=== PATIENT | female | born 1975 | race Caucasian/White ===

== ENCOUNTER → 2017-09-17 15:49 | Outpatient (CLI) | payer BC, SELFPAY ==
[2017-09-22 15:25] LABS: HPV Reflexed? NOT INDICATED
== END ==
PROVIDERS: Family Provider Student in an Organized Health Care Education/Training Program; PCP Student in an Organized Health Care Education/Training Program; Visit Provider Obstetrics & Gynecology
DX: Z12.4 Encounter for screening for malignant neoplasm of cervix (principal)
CPT/HCPCS: 88175; G0145

== ENCOUNTER 2020-09-18 15:43 | Emergency (ER) | payer BC, SELFPAY ==
[2020-09-18 15:45] VITALS: BP 117/85; PULSE 76; RESP 14; TEMP 35.9; O2SAT 98; BMI 33.8
--- NOTE | 2020-09-18 16:02 | EKG12_ITS ---
Test Reason : CP Blood Pressure : / mmHG Vent. Rate : 069 BPM Atrial Rate : 069 BPM P-R Int : 134 ms QRS Dur : 080 ms QT Int : 386 ms P-R-T Axes : 054 003 039 degrees QTc Int : 413 ms Sinus rhythm with occasional Premature ventricular complexes Otherwise normal ECG Confirmed by RASHARD ECHEVARRIA, ADAMARIS ([id number]), editorial intern ENLY PATIÑO ([id number]) on 09/20/2020 10:40:36 AM Referred By: WHIT Confirmed By:ADAMARIS WETZEL MD
[2020-09-18 17:23] VITALS: BP 135/87; PULSE 67; RESP 15; O2SAT 99
--- NOTE | 2020-09-18 17:26 | RAD_ITS ---
STUDY: X-RAY CHEST REASON FOR EXAM: Female, 45 years old. Chest pain TECHNIQUE: Single AP portable view of the chest. COMPARISON: None. FINDINGS: EKG leads overlie the chest The lungs are clear and expanded. There is no demonstrated pleural abnormality. Normal size heart. Normal mediastinum and juan. Normal visualized pulmonary arteries. Normal visualized aortic arch and descending thoracic aorta. Normal visualized thoracic spine. Normal visualized ribs, clavicles, and shoulders. There is no demonstrated abnormality of the visualized soft tissue structures of the upper abdomen. RAD/Chest 1 View (Portable) IMPRESSION: Normal x-ray examination of the chest. Electronically Signed: Matty Gibbs MD at 17:43 EDT , Service support ,
--- NOTE | 2020-09-18 17:41 | EDS_ITS ---
HPI History of Present Illness Chief Complaint: Chest Pain Informant: patient Onset/Context/Timing Onset: Days Context: Gradual Onset Timing: Intermittent Current Severity: Mild Maximum Severity: Mild Narrative Narrative: 45-year-old female had an abscess on her left upper shoulder had I&D primary care physician put her on Bactrim and Keflex. She is finished with the Keflex and now only on the Bactrim. Said she had a similar reaction 1 time to a Z-Himanshu. Says she has whole body pain. At times has lightning strikes in her chest. Has a burning sensation and just feels funny. She denies nausea vomiting or diarrhea. She denies fever or chills. Prior to antibiotic she had no exertional chest pain or exertional shortness of breath. She is never had a DVT or PE. She has no leg pain or swelling. There is no pleuritic discomfort and she is had no hemoptysis. She has no significant past medical history othe rwise. Prior similar symptoms: Yes Recent Illness/Hospitalization: No PFSH PFSH Home Medications cephalexin 500 mg PO TID 09/18/20 [History Last Taken Unknown] norgestimate-ethinyl estradiol [Sprintec (28)] 1 tab PO DAILY 09/18/20 [History Last Taken Unknown] sulfamethoxazole-trimethoprim [Bactrim DS] 1 tab PO BID 09/18/20 [History Last Taken Unknown] Allergy/AdvReac Type Severity Reaction Status Date / Time clarithromycin [From Biaxin] Allergy Rash Verified 09/18/20 15:44 Social History Smoking Status: Never smoker ROS ROS ED ROS Narrative Denies recent illness. Review of Systems ROS Unobtainable: Denies due to encephalopathy Constitutional Constitutional ED: Denies fever(s) or subjective Eyes Eyes: Denies blurry vision or change in vision ENT ENT ED: Denies ear pain or sore throat Cardiovascular Cardiovascular: Reports chest pain; Denies orthopnea, palpitations, paroxysmal nocturnal dyspnea or racing heartbeat Respiratory/Chest Respiratory/Chest: Denies cough, dyspnea, dyspnea on exertion, orthopnea or paroxysmal nocturnal dyspnea Gastrointestinal Gastrointestinal: Denies abdominal pain, diarrhea, nausea or vomiting Genitourinary Genitourinary ED: Denies dysuria or hematuria Musculoskeletal Musculoskeletal: Denies myalgias Integumentary Denies rash Neurologic Neurologic: Denies headache(s) Psychiatric Psychiatric: Denies depression Endocrine Endocrinology: Denies polyuria EXAM Physical Exam Narrative Exam Narrative: Well-appearing middle-aged female no acute distress vital signs stable afebrile pulse ox 98% on room air no signs hypoxia. HEENT exam normal. Neck unremarkable. Lungs are clear. Heart regular rhythm no murmur. Chest wall nontender. Abdomen soft nontender. Patient moving all 4 extremities. Neurovascular intact. Calves are nontender without edema or cords. Her left upper shoulder to prior I&D is well-healed. Back nontender. Neurologic exam normal. Const Vital Signs: 09/18/20 15:45 09/18/20 17:23 Temperature 96.6 F L Temperature Source Temporal Pulse Rate 76 67 Respiratory Rate 14 15 Blood Pressure 117/85 H 135/87 H Blood Pressure Mean 95 103 Pulse Ox 98 99 Oxygen Delivery Method Room Air Room Air Positive well nourished and well developed General Appearance ED: well developed and NAD HEENT Reports moist mucous membranes Negative for trauma or tenderness Eyes PERRL and EOMs intact bilaterally Neck no lymphadenopathy, supple and no JVD General: Negative for tenderness Chest Wall inspection of chest normal and palpation of chest normal Resp normal respiratory effort and clear to auscultation bilaterally Cardio regular rate, regular rhythm, S1 normal heart sound, S2 normal heart sound and no murmurs GI normal to inspection, nondistended, normoactive bowel sounds, non-tender, non- distended and no masses Inspection: Negative for abdominal distention Auscultation: normoactive bowel sounds Palpation: soft; Negative for tender, guarding or rebound tenderness present Back/Spine no CVA tenderness General Back: Negative for CVA tenderness Extremity normal to inspection General Extremety ED: Negative for edema or tenderness General Extremity: Negative for edema Neuro oriented x3 and CN's II-XII intact bilaterally Sensorium / Orientation: alert; Negative for lethargic or stuporous Motor Exam: strength 5/5 throughout Psych mental status grossly normal Skin no rashes or lesions noted and no wounds MDM MDM MDM Narrative Medical decision making narrative: Patient with a burning sensation of her whole body. She describes lightning strikes her chest at times this is not cardiac in etiology is not a DVT or PE. Screening labs will be obtained I suspect those will be all well and she will be discharged to home. Repeat exam patient doing well at 9:55 PM will be discharged to home. I went over all test results with her. Lab Data Attestation: I reviewed the patient's lab results. Lab results narrative: CBC White count 3 hemoglobin 14. Electrolytes sodium 132. Normal gap 7 normal creatinine. Normal troponin. Chest x-ray unremarkable. EKG normal with PVCs. Labs: Laboratory Results - last 24 hr 09/18/20 09/18/20 17:45 17:45 WBC 3.8 L RBC 5.01 Hgb 14.3 Hct 45.0 MCV 89.8 MCH 28.5 MCHC 31.8 L RDW Std Deviation 40.4 RDW Coeff of Faye 12.3 Plt Count 225 MPV 9.7 Immature Gran % (Auto) 0.300 Neut % (Auto) 49.9 Lymph % (Auto) 21.8 [place] % (Auto) 14.7 H Eos % (Auto) 11.5 H Baso % (Auto) 1.8 H Absolute Neuts (auto) 1.9 L Absolute Lymphs (auto) 0.83 Nucleated RBC % 0 Sodium 132 L Potassium 4.9 Chloride 102 Carbon Dioxide 23.0 Anion Gap 7 BUN 11 Creatinine 0.70 Estim Creat Clear Calc 99.73 Est GFR (MDRD) Af Amer 118 Est GFR (MDRD) Non-Af 97 BUN/Creatinine Ratio 15.7 Glucose 92 Calcium 8.8 Troponin I High Sens 4.6 Radiography Chest X-Ray - ED: 1 View, Read by ED Physician, Heart, Lungs, Mediastinum, Bony Structures and No Acute Disease Rhythm Strip Rhythm Strip: Sinus Rhythm Rate: 69 Ectopy: None and PVC(s) EKG Initial EKG: Attestation: I personally reviewed and interpreted this EKG as follows: Interpretation: Sinus Rhythm and No Acute Injury Pattern Comments: Normal sinus rhythm rate of 69 no acute signs of [place] or ischemia. Few PVCs. Discharge Plan Triage Chief Complaint: Chest Pain ED Provider: Flip John Dx/Rx/DC Orders Clinical Impression: Medication adverse effect Instructions: ED Drug Reaction, Other Prescriptions: No Action sulfamethoxazole-trimethoprim [Bactrim DS] 800-160 mg Tablet 1 tab PO BID RF: 0 cephalexin 500 mg capsule 500 mg PO TID RF: 0 norgestimate-ethinyl estradiol [Sprintec (28)] 0.25-35 mg-mcg Tablet 1 tab PO DAILY RF: 0 Primary Care Provider: Balwinder Yanes Referrals: Balwinder Yanes DO [Primary Care Provider] - Activity Restrictions/Additional Instructions: I think this is all due to the antibiotics which you can stop now. This should improve over the next several days. All your labs look good as is your chest x-ray and EKG. Disposition Disposition: Home, Self Care
[2020-09-18 19:14] LABS: Absolute Lymphocyte Count 0.83 X10^3/uL (0.83-4.51); Absolute Neutrophil Count 1.9 X10^3/uL (2.0-7.7); Basophil# 0.07 X10^3/uL; Basophil% 1.8 % (0-1); Eosinophil# 0.44 X10^3/uL; Eosinophils% 11.5 % (0-5); Hemoglobin 14.3 g/dL (12.0-15.0); Lymphocyte # 0.83 X10^3/ul (0.83-4.51); Lymphocyte % 21.8 % (19-41); Mean Corp Hgb Conc 31.8 g/dL (32-36); Mean Corpuscular Hgb 28.5 pg (27.0-32.0); Mean Corpuscular Volume 89.8 fL (81-99); Mean Platelet Vol. 9.7 fl (6.2-12.0); Monocyte# 0.56 X10^3/uL; Monocyte% 14.7 % (0-10); NRBC Flagged by Analyzer 0 % (0-5); Neutrophil % 49.9 % (47-70); Platelet Count 225 K/mm3 (150-450); RBC Distribution Width CV 12.3 % (11.6-14.6); RBC Distribution Width SD 40.4 fl (35.1-43.9); Red Blood Count 5.01 M/mm3 (4.2-5.4); White Blood Count 3.8 K/mm3 (4.4-11.0)
[2020-09-18 19:26] LABS: BUN 11 mg/dL (7-18); BUN/Creat Ratio 15.7 RATIO (10-20); Calcium,Total 8.8 mg/dL (8.5-10.1); EST Glomerular Filtration Rate 97 mL/min (>60); Est Glom Filt Rate - Afr Amer 118 mL/min (>60); Estimated Creatinine Clearance 99.73 ml/min; Glucose 92 mg/dL (74-106); Troponin-I HS 4.6 pg/mL (3.0-53.7)
[2020-09-18 19:27] LABS: Anion Gap 7 (5-15); Chloride 102 mmol/L (98-107); Potassium 4.9 mmol/L (3.5-5.1); Sodium Level 132 mmol/L (136-145)
[2020-09-18 22:07] VITALS: BP 122/91; PULSE 71; RESP 16; TEMP 36.6
== END 2020-09-18 22:07 | disposition home or self-care (01) ==
PROVIDERS: Emergency Provider Emergency Medicine; PCP Student in an Organized Health Care Education/Training Program
DX: R07.9 Chest pain, unspecified (principal)
CPT/HCPCS: 71045; 80048; 84484; 85025; 93005; 99285